=== PATIENT | female | born 1975 | race Caucasian/White ===

== ENCOUNTER 2020-03-26 06:04 | Emergency (ER) | payer OTHER ==
[~2020-03-26] VITALS: Ht 170.2 cm; Wt 106.6 kg
[2020-03-26] MEDS ORDERED: LEVO-T112 MCG PO (06:14)
[2020-03-26] MEDS ORDERED: ALBUTEROL2.5 MG/0.1 INH (06:15)
[2020-03-26] MEDS ORDERED: SLOW FE142 MG PO (06:15)
[2020-03-26 06:28] LABS: HEMATOCRIT 39.3 % (37.0-47.0); MCH 27.4 pg (26.0-34.0); MCHC 33.1 g/dL (28.0-37.0); MCV 82.9 fL (80.0-100.0); RBC 4.74 mil/uL (4.20-5.00); RDW 13.2 % (10.5-14.5)
[2020-03-26 06:31] LABS: URINE BILIRUBIN NEGATIVE (Negative); URINE BLOOD NEGATIVE (Negative); URINE CLARITY CLEAR; URINE COLOR YELLOW; URINE GLUCOSE-RANDOM* NEGATIVE (Negative); URINE KETONES NEGATIVE (Negative); URINE LEUKOCYTES-REFLEX NEGATIVE (Negative); URINE NITRITE-REFLEX NEGATIVE (Negative); URINE PROTEIN (DIPSTICK) TRACE (Negative); URINE SPECIFIC GRAVITY >= 1.030 (1.005-1.035)
[2020-03-26 06:49] LABS: ANION GAP 10 mmol/L (7-16); BUN 11 mg/dL (7-18); CALCIUM 8.1 mg/dL (8.5-10.1); CHLORIDE 103 mmol/L (98-107); CO2 25 mmol/L (21-32); CREATININE 0.7 mg/dL (0.6-1.0); GLUCOSE 94 mg/dL (74-106); POTASSIUM 3.4 mmol/L (3.5-5.1); SODIUM 138 mmol/L (136-145)
[2020-03-26 06:59] LABS: ALBUMIN 3.6 g/dL (3.4-5.0); SGOT 17 U/L (15-37); SGPT 35 U/L (30-65); TOTAL BILIRUBIN 0.6 mg/dL (0.2-1.0); TOTAL PROTEIN 7.4 g/dL (6.4-8.2); TROPONIN-I <0.06 ng/mL (<0.06)
--- NOTE | 2020-03-26 08:21 | EKG ---
[facility] [place] [address] ELECTROCARDIOGRAM REPORT Name: LINDA MAYEN Room #: [facility]#: [id number] Admission: 03/26/20 Attend Phys: Discharge: Date of : 73 Report #: [id number] THIS REPORT FOR: cc: Justin Johnson MD, Greg E. 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
[2020-03-26 09:40] VITALS: BP 117/73
--- NOTE | 2020-03-26 13:54 | EKG ---
[facility] [place] [address] ELECTROCARDIOGRAM REPORT Name: LINDA MAYEN Room #: [facility]P [facility]#: [id number] Admission: 03/26/20 Attend Phys: Discharge: 03/26/20 Date of : 73 Report #: [id number] THIS REPORT FOR: cc: Justin Johnson MD, Greg E. MD Santiago, Patrick MD [facility] ~ THIS REPORT FOR: //name// [facility] ED Test Date: 2020-03-26 Test Time: 07:40:42 Pat Name: LINDA MAYEN Department: Room: Gender: F Bioinformatics Developer: GEETHA KGDALLIN : 1975 Requested By: Isaac Painter Order Number: [id number] MD: Guille Martinez Measurements Intervals [place] Rate: 70 P: 48 [place]: 175 QRS: 46 QRSD: 96 T: 49 QT: 400 QTc: 432 Interpretive Statements Sinus rhythm Compared to ECG 03/26/2020 06:09:37 No significant changes Electronically Signed On 03-26-2020 13:54:13 CDT by Guille Martinez [email or web address] <ELECTRONICALLY SIGNED> By: Guille Martinez MD, FACC 03/26/20 1354 9 9 Guille Martinez MD, [facility] /EPI
== END 2020-03-26 09:40 | disposition home or self-care (01) ==
LOC: ER 06:04
PROVIDERS: Emergency Medicine
DX: E87.6 Hypokalemia (principal); R00.0 Tachycardia, unspecified; R07.9 Chest pain, unspecified; E03.9 Hypothyroidism, unspecified; Z79.899 Other long term (current) drug therapy